=== PATIENT | female | born 1950 | race Hispanic/Latino ===

== ENCOUNTER 2016-12-31 04:18 | Inpatient (IN) | payer BC ==
[2016-12-31 04:23] VITALS: BMI 23.9
[2016-12-31] MEDS: Sodium Chloride 0.9% 1,000 ML IV STA ×2 (04:36→05:33)
--- NOTE | 2016-12-31 04:39 | ED PDOC ---
Arrival/HPI - General Chief Complaint: Abdominal Pain Time Seen by Provider: 12/31/16 04:21 Historian: Patient - History of Present Illness Narrative History of Present Illness (Text): 12/31/16 04:35 Lamar Del Real is a 66 year old female, with no significant past medical history , who presents to the emergency department complaining of left flank pain. Patient states tonight she woke up with sudden onset of left flank pain radiating to her left abdomen and hematuria. Patient notes yesterday she had nausea, vomiting, and headache. Patient denies any fever, chills, chest pain, shortness of breath, diarrhea, back pain, neck pain, headache, dizziness, or any other complaints. Time/Duration: Other (yesterday) Symptom Onset: Gradual Symptom Course: Unchanged Activities at Onset: Rest, Light Context: Home Past Medical History - Provider Review Nursing Documentation Reviewed: Yes - Infectious Disease Hx of Infectious Diseases: None - Psychiatric Hx Substance Use: No - Anesthesia Hx Anesthesia: No Family/Social History - Physician Review Nursing Documentation Reviewed: Yes Family/Social History: No Known Family HX Smoking Status: Former Smoker Hx Alcohol Use: Yes Frequency of alcohol use: Socially Hx Substance Use: No Allergies/Home Meds Allergies/Adverse Reactions: Allergies No Known Allergies Allergy (Verified 12/31/16 04:23) Home Medications: Home Meds Medication Instructions Recorded Confirmed No Known Home Med 12/31/16 12/31/16 Review of Systems - Physician Review All systems were reviewed & negative as marked: Yes - Review of Systems Constitutional: Normal. absent: Fevers Eyes: Normal ENT: Normal Respiratory: Normal. absent: SOB, Cough Cardiovascular: Normal. absent: Chest Pain Gastrointestinal: Nausea, Vomiting Genitourinary Female: Hematuria Musculoskeletal: Back Pain. absent: Neck Pain Skin: Normal. absent: Rash Neurological: Normal. absent: Headache, Dizziness Endocrine: Normal Hemo/Lymphatic: Normal Psychiatric: Normal Physical Exam Vital Signs Reviewed: Yes Vital Signs Temp Pulse Resp BP Pulse Ox 12/31/16 04:39 181/88 H 12/31/16 04:25 97.9 F 94 H 20 163/126 H 99 Temperature: Afebrile Blood Pressure: Normal Pulse: Regular Respiratory Rate: Normal Appearance: Positive for: Well-Appearing, Non-Toxic, Comfortable Pain Distress: None Mental Status: Positive for: Alert and Oriented X 3 - Systems Exam Head: Present: Atraumatic, Normocephalic Pupils: Present: PERRL Extroacular Muscles: Present: EOMI Conjunctiva: Present: Normal Mouth: Present: Moist Mucous Membranes Neck: Present: Normal Range of Motion Respiratory/Chest: Present: Clear to Auscultation, Good Air Exchange. No: Respiratory Distress, Accessory Muscle Use Cardiovascular: Present: Regular Rate and Rhythm, Normal S1, S2. No: Murmurs Abdomen: Present: Normal Bowel Sounds. No: Tenderness, Distention, Peritoneal Signs Back: Present: Normal Inspection Upper Extremity: Present: Normal Inspection. No: Cyanosis, Edema Lower Extremity: Present: Normal Inspection. No: Edema Neurological: Present: GCS=15, CN II-XII Intact, Speech Normal Skin: Present: Warm, Dry, Normal Color. No: Rashes Psychiatric: Present: Alert, Oriented x 3, Normal Insight, Normal Concentration Medical Decision Making ED Course and Treatment: 12/31/16 04:35 Impression: 66 Year old female Complaining of left flank pain and hematuria tonight with nausea and vomiting since yesterday Plan: -- CT Abdomen and Pelvis w/o contrast -- Labs, lipase -- UA -- IV fluids -- Zofran -- Toradol -- Reassess and disposition Progress Notes: 12/31/16 06:43 Reviewed radiology, CT Abdomen and Pelvis shows: 1. There is fullness of the right renal collecting system. No obstructing stone is identified. There is a questionable tiny stone in the extrarenal pelvis. 2. Hydronephrosis left kidney. There is some high attenuation material in the proximal left ureter possibly representing clot. No stones are seen within this kidney. Mild inflammation a small amount of fluid around the left kidney consistent with obstruction. 12/31/16 06:49 Paged pt's PMD. 12/31/16 06:[address] Mile Fu, who is aware and agrees with plan. Accepts pt in to his service. Pt will be admitted to [facility] for hydronephrosis/pyelonephritis, and hematuria. Requests Dr. Norris and Dr. Vallejo on consult. Paged Dr. Vallejo. - Lab Interpretations Lab Results: 12/31/16 04:33 12/31/16 04:33 Lab Results 12/31/16 04:33: WBC 14.1 H, RBC 7.27 H, Hgb 19.5 H*, Hct 57.1 H*, MCV 78.5 L, MCH 26.8, MCHC 34.2, RDW 20.6 H, Plt Count 751 H*, MPV 9.9, Sodium 139, Potassium 4.1, Chloride 98, Carbon Dioxide 25, Anion Gap 20, BUN 22 H, Creatinine 1.1, Est GFR ( Amer) > 60, Est GFR (Non-Af Amer) 50, Random Glucose 130 H, Calcium 9.9, Total Bilirubin 1.1, AST 38, ALT 45, Alkaline Phosphatase 116, Total Protein 8.3, Albumin 4.6, Globulin 3.7, Albumin/Globulin Ratio 1.2, Lipase 272 I have reviewed the lab results: Yes - RAD Interpretation Narrative RAD Interpretations (Text): CT Abdomen and Pelvis shows: Lower thorax: Atelectasis posterior lungs. Trace pericardial effusion. ABDOMEN: Liver: Unremarkable. Gallbladder and bile ducts: Unremarkable. No calcified stones. No ductal dilation. Pancreas: Unremarkable. No ductal dilation. Spleen: Unremarkable. No splenomegaly. Adrenals: Unremarkable. No mass. Kidneys and ureters: There is fullness of the right renal collecting system. No obstructing stone is identified. There is a questionable tiny stone in the extrarenal pelvis. Hydronephrosis left kidney. There is some high attenuation material in the proximal left ureter possibly representing clot. No stones are seen within this kidney. Mild inflammation a small amount of fluid around the left kidney consistent with obstruction. Stomach and bowel: Diverticulosis in the colon without evidence of diverticulitis. No obstruction. Appendix: Normal appendix. PELVIS: Bladder: Unremarkable. No stones. Reproductive: Unremarkable as visualized. ABDOMEN and PELVIS: Intraperitoneal space: Unremarkable. No free air. No significant fluid collection. Bones/joints: No acute fracture. No dislocation. Soft tissues: Small umbilical hernia containing fat. Vasculature: Unremarkable. No abdominal aortic aneurysm. Lymph nodes: Unremarkable. No enlarged lymph nodes. IMPRESSION: 1. There is fullness of the right renal collecting system. No obstructing stone is identified. There is a questionable tiny stone in the extrarenal pelvis. 2. Hydronephrosis left kidney. There is some high attenuation material in the proximal left ureter possibly representing clot. No stones are seen within this kidney. Mild inflammation a small amount of fluid around the left kidney consistent with obstruction. 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 - Medication Orders Current Medication Orders: Sodium Chloride (Sodium Chloride 0.9%) 1,000 mls @ 999 mls/hr IV .Q1H1M STA Stop: 12/31/16 08:00 Last Admin: 12/31/16 07:00 Dose: 999 MLS/HR eMAR Start Stop Document 12/31/16 07:00 GMD (Rec: 12/31/16 07:00 [id number] Intravenous Solution Start Date 12/31/16 Start Time 07:00 End Date 12/31/16 End time 08:00 Total Infusion Time 60 Sodium Chloride (Sodium Chloride 0.9%) 1,000 mls @ 100 mls/hr IV .Q10H STA Stop: 12/31/16 17:25 Discontinued Medications Hydromorphone HCl (Dilaudid) 1 mg IVP STAT STA Stop: 12/31/16 04:56 Last Admin: 12/31/16 05:01 Dose: 1 MG IVP Administration Document 12/31/16 05:01 GMD (Rec: 12/31/16 05:01 [id number] Charges for Administration # of IVP Administrations 1 Hydromorphone HCl (Dilaudid) 1 mg IVP STAT STA Stop: 12/31/16 07:27 Sodium Chloride (Sodium Chloride 0.9%) 1,000 mls @ 999 mls/hr IV .Q1H1M STA Stop: 12/31/16 05:32 Last Admin: 12/31/16 05:33 Dose: 999 MLS/HR eMAR Start Stop Document 12/31/16 05:33 MICHAEL (Rec: 12/31/16 05:34 [id number]) Intravenous Solution Start Date 12/31/16 Start Time 04:35 End Date 12/31/16 End time 05:34 Total Infusion Time 59 Ceftriaxone Sodium (Rocephin 1 Gram Ivpb) 100 mls @ 200 mls/hr IV ONCE STA PRN Reason: Protocol Stop: 12/31/16 07:18 Ketorolac Tromethamine (Toradol) 30 mg IVP ONCE ONE Stop: 12/31/16 04:33 Last Admin: 12/31/16 04:41 Dose: 30 MG IVP Administration Document 12/31/16 04:41 GMD (Rec: 12/31/16 04:41 GMD [id number]) Charges for Administration # of IVP Administrations 1 Ondansetron HCl (Zofran Inj) 4 mg IVP ONCE ONE Stop: 12/31/16 04:33 Last Admin: 12/31/16 04:41 Dose: 4 MG IVP Administration Document 12/31/16 04:41 GMD (Rec: 12/31/16 04:41 GMD [id number]) Charges for Administration # of IVP Administrations 1 - Scribe Statement The provider has reviewed the documentation as recorded by the Savanna Thakkar Provider Attestation: All medical record entries made by the Savanna were at my direction and personally dictated by me. I have reviewed the chart and agree that the record accurately reflects my personal performance of the history, physical exam, medical decision making, and the department course for this patient. I have also personally directed, reviewed, and agree with the discharge instructions and disposition. Disposition/Present on Arrival - Present on Arrival Any Indicators Present on Arrival: No History of DVT/PE: No History of Uncontrolled Diabetes: No Urinary Catheter: No History of Decub. Ulcer: No History Surgical Site Infection Following: None - Disposition Have Diagnosis and Disposition been Completed?: Yes Diagnosis: Pyelonephritis, Hematuria, Hydronephrosis, Polycythemia Disposition: HOSPITALIZED Disposition Time: 07:19 Patient Plan: Admission Patient Problems: Current Active Problems Problem Status Diagnosed Hematuria Acute Hydronephrosis Acute Polycythemia Acute Pyelonephritis Acute Condition: STABLE
[2016-12-31] MEDS ORDERED: HYDROmorphone 1 mg/ml ISec IVP STA ×2 (04:55→07:26)
[2016-12-31 05:02] LABS: MEAN CELL VOLUME 78.5 fL (80.0-105.0); MEAN CORPUSCULAR HEMOGLOBIN 26.8 pg (25.0-35.0); MEAN CORPUSCULAR HGB CONC 34.2 g/dl (31.0-37.0); RED CELL DISTRIBUTION WIDTH 20.6 % (11.5-14.5); WHITE BLOOD COUNT 14.1 10^3/ul (4.5-11.0)
[2016-12-31 05:05] LABS: HEMATOCRIT 57.1 % (36.0-48.0); MEAN PLATELET VOLUME 9.9 fl (7.0-11.0)
[2016-12-31 05:13] LABS: ALB/GLOB RATIO 1.2 (1.1-1.8); ALKALINE PHOSPHATASE 116 U/L (38-133); ALT/SGPT 45 U/L (7-56); AST/SGOT 38 U/L (15-39); BILIRUBIN,TOTAL 1.1 mg/dL (0.2-1.3); BLOOD UREA NITROGEN 22 mg/dL (7-21); CALCIUM 9.9 mg/dL (8.4-10.5); CARBON DIOXIDE 25 mmol/L (21-33); CHLORIDE 98 mmol/L (98-107); GFR AFRICAN-AMERICAN > 60; GLUCOSE,RANDOM 130 mg/dL (70-110); LIPASE 272 U/L (23-300); POTASSIUM 4.1 mmol/L (3.6-5.0); SODIUM 139 mmol/L (132-148); TOTAL PROTEIN 8.3 g/dL (5.8-8.3)
[2016-12-31] MEDS ORDERED: cefTRIAXone 1 gm 100 ML IV STA (06:49)
[2016-12-31] MEDS ORDERED: Sodium Chloride 0.9% 1,000 ML IV STA ×2 (07:00→07:26)
[2016-12-31 07:34] LABS: PH,URINE 6.5 (4.7-8.0); URINE BILIRUBIN NEGATIVE (NEGATIVE); URINE BLOOD LARGE (NEGATIVE); URINE GLUCOSE (UA) NEGATIVE (NEGATIVE); URINE KETONE 40 mg/dL (NEGATIVE); URINE LEUKOCYTE ESTERASE TRACE Leu/uL (NEGATIVE); URINE PROTEIN 100 mg/dL (<30 mg/dL)
[2016-12-31 07:36] LABS: URINE APPEARANCE CLOUDY (CLEAR); URINE COLOR YELLOW (YELLOW)
[2016-12-31 07:47] LABS: URINE BACTERIA MOD (NEG); URINE EPITHELIAL CELLS 0 - 2 /hpf (0-5); URINE RBC TNTC /hpf (0-2); URINE WBC 0 - 2 /hpf (0-6)
--- NOTE | 2016-12-31 09:34 | CT ---
PROCEDURE: CT Abdomen and Pelvis without intravenous contrast HISTORY: left flank pain COMPARISON: None. TECHNIQUE: Noncontrast. Contrast Dose: Radiation dose: Total exam DLP = 397 mGy-cm. This CT exam was performed using one or more of the following dose reduction techniques: Automated exposure control, adjustment of the mA and/or kV according to patient size, and/or use of iterative reconstruction technique. FINDINGS: LOWER THORAX: Unremarkable. LIVER: Unremarkable. No gross lesion or ductal dilatation. GALLBLADDER AND BILE DUCTS: Unremarkable. PANCREAS: Unremarkable. No gross lesion or ductal dilatation. SPLEEN: Unremarkable. ADRENALS: Unremarkable. No mass. KIDNEYS AND URETERS: There is some perinephric stranding around the left kidney as well as mild hydronephrosis. There is dense material seen in the proximal ureter without evidence of a discrete stone. A small stone could be obscured. This probably represents acute blood. Findings are best seen on image 43 and 44 in the coronal plane. The right renal collecting system is mildly prominent but there is no perinephric stranding and no evidence of a stone. VASCULATURE: Unremarkable. No aortic aneurysm. BOWEL: Unremarkable. No obstruction. No gross mural thickening. APPENDIX: Unremarkable. Normal appendix. PERITONEUM: Unremarkable. No free fluid. No free air. LYMPH NODES: Unremarkable. No enlarged lymph nodes. BLADDER: Unremarkable. REPRODUCTIVE: Unremarkable. BONES: No acute fracture. OTHER FINDINGS: The report concurs with the preliminary [facility] report IMPRESSION: Left-sided hydronephrosis and perinephric stranding. There is some dense material in the proximal left ureter which probably represents acute blood. This is probably obscuring an underlying stone.
[2016-12-31] MEDS ORDERED: HYDROmorphone 1 mg/ml ISec IVP PRN (11:49)
[2016-12-31] MEDS ORDERED: Pneumococcal 23-Valent Vaccine IM ONE (13:23)
--- NOTE | 2016-12-31 14:09 | CON ---
DATE: 12/31/2016 CHIEF COMPLAINT: Abdominal pain. HISTORY OF PRESENT ILLNESS: This is a 66[facility] after 2 days of sudden onset of left lower back and left lower quadrant abdominal pain. The patient had nausea with some vomiting and she had a headache. She had no fever, no chills , no chest pain, no shortness of breath. She denies any dysuria, urinary frequency or urgency, but d oes report an episode of gross hematuria. The patient's pain increased, and she presented to the [facility] where she was evaluated and admitted. She had a CT scan showing some mild left hydronephrosis with some high density material in the ureter, although no discrete stone was seen. A consultatio n was requested regarding the above. PAST MEDICAL HISTORY: Denies any diabetes or hypertension. Denies any coronary artery disease. MEDICATIONS: Currently on Dilaudid, Zofran, and IV fluids. ALLERGIES: No known drug allergies. FAMILY HISTORY: Noncontributory. SOCIAL HISTORY: No smoking or ETOH use. REVIEW OF SYSTEMS: A 12-point review of systems was obtained. Positives as per the HPI. All other systems were negative. PHYSICAL EXAMINATION: GENERAL: The patient is awake and alert, answering questions. She is in no acute distress. She is afebrile. VITAL SIGNS: Temp of 97.9, pulse of 96, blood pressure 149/90 and respirations of 16. NECK: Supple. There is no adenopathy or mass. CHEST: Reveals normal inspiratory effort. CARDIAC: Showed positive S1, S2. There is no peripheral edema noted. ABDOMEN: Soft. There is some mild tenderness in the left lower quadrant and some mild tenderness to percussion over the left lower back below the kidney region. There is no rebound or guarding. Ther e is no obvious mass. EXTREMITIES: There is no cyanosis or edema noted. LABORATORY DATA: WBC count 14.1, hemoglobin of 19.5 and hematocrit of 57.1 with a platelet count of 751, BUN of 22, a creatinine of 1.1 with a GFR of 50. Urinalysis showed too numerous to count rbc's, 0-2 wbc's, negative glucose and trace protein. RADIOLOGIC EXAMINATION: The patient had a CT scan of the abdomen and pelvis done early this morning. CT scan shows some perinephric stranding around the left kidney as well as mild hydronephrosis. Th ere is a dense material seen in the proximal ureter without evidence of a discrete stone, small stone could be obscured this finding was felt to represent likely an acute bleed. The right kidney was mi ldly prominent, but there was no perinephric stranding or hydronephrosis. IMPRESSION AND PLAN: This is a 66-year-old female with likely renal colic. It is possibly due to a stone or possibly due to a bleed. From a urologic standpoint, I will start patient on Flomax 0.4 mg daily. Would continue patient on IV hydration, aggressive p.o. hydration and would start patient on IV antibiotics. It is unclear why patient has an elevated hemoglobin, hematocrit and platelet count, possibly patient will need a hematology consultation. If patient's symptoms persist, I would plan o n repeating a CT scan without and with IV contrast if patient's GFR improves with hydration to see if there is indeed a stone, it would likely be a small stone and would likely pass spontaneously with m edical therapy. Thank you for allowing us to participate in the care of this patient. We will follow her with you. There is no acute indication for any invasive urologic procedure at this time. Dwayne Hamilton MD cc: [phone] TT: 12/31/2016 14:08:41 Confirmation # [id number] Dictation # [id number] an
[2016-12-31 16:11] VITALS: RESP 20
[2017-01-01 09:02] LABS: ADD MANUAL DIFF? NO
[2017-01-01] MEDS: Dextrose 5%/0.45% NS 1,000 ML IV SCH ×2 (09:24→17:29)
[2017-01-01] MEDS: cefTRIAXone 1 gm 1 GM/100 ML BAG IV SCH (09:24)
[2017-01-01 09:30] LABS: BASO # 0.07 K/mm3 (0.0-2.0); BASO % 0.5 % (0.0-3.0); EOS # 0.1 (0.0-0.7); EOS % 0.9 % (1.5-5.0); GRAN % 85.3 % (50.0-68.0); HEMATOCRIT 51.8 % (36.0-48.0); LYMPH # 0.8 (1.2-3.4); LYMPH % 5.8 % (22.0-35.0); MEAN CELL VOLUME 81.1 fL (80.0-105.0); MEAN CORPUSCULAR HEMOGLOBIN 27.7 pg (25.0-35.0); MEAN CORPUSCULAR HGB CONC 34.2 g/dl (31.0-37.0); MEAN PLATELET VOLUME 10.4 fl (7.0-11.0); MONO % 7.5 % (1.0-6.0); PLATELET COUNT 501 10^3/uL (120.0-450.0); RED CELL DISTRIBUTION WIDTH 17.5 % (11.5-14.5); WHITE BLOOD COUNT 13.5 10^3/ul (4.5-11.0)
[2017-01-01 09:39] LABS: CALCIUM 8.7 mg/dL (8.4-10.5)
--- NOTE | 2017-01-01 10:43 | PN ---
DATE: 01/01/2017 The patient is still having intermittent left flank pain. CAT scan was reviewed. Her white count is still 13,500. The CAT scan shows left hydro. Her father has had kidney stones. It is possible thi s could be a very small stone; however, the other possibility, given her history of sudden onset and bleeding with worm-like clots, we want to rule out some type of urothelial tumor. Her creatinine rig ht now is 1.5. I would not give her IV contrast. The BUN actually is a little bit lower than it was when it was 1.1. My recommendation is to continue with hydration. If she continues to have left fl ank pain, I would recommend doing a cystoscopy with retrograde, stent placement and possible flexible ureteroscopy. If she improves without any pain and her creatinine comes down to normal, I would do a CT urogram on her and then electively do a retrograde with flexible ureteroscopy. Will discuss brittanie olmos you. Magdiel Vallejo MD cc: [phone] TT: 01/01/2017 10:42:19 Confirmation # [id number] Dictation # [id number] jan
--- NOTE | 2017-01-01 10:57 | HP ---
HISTORY OF PRESENT ILLNESS: The patient is a 66-year-old female who presents to the Emergency Room complaining of left flank pain. Three days ago the patient had a sudden onset of headache followed by nausea and dry heaving. The following day, the dry heaving continue. The patient states she had a black bowel movement, "vandana than I ever saw before." This morning she developed left-sided flank pain. It was radiating from the left flank across the lower abdomen towards the pubes. She, therefore, presented to the Emergency, is evaluated and admitted. PAST MEDICAL HISTORY: She has essentially no past medical history. MEDICATIONS: Was taking no medications at the time of admission. ALLERGIES: She has no known medical allergies. SOCIAL HISTORY: She is a former smoker, has not smoked in many years. Drinks alcohol only socially. She is . REVIEW OF SYSTEMS: Otherwise, unremarkable. PHYSICAL EXAMINATION: GENERAL: The patient looks uncomfortable. She is awake, alert, and oriented. VITAL SIGNS: Her blood pressure is 163/126 which after a while came down to 181 /88. Heart rate is 94 and she is afebrile. HEENT: Unremarkable. NECK: Supple. No lymphadenopathy, no goiter and no bruits. LUNGS: Clear to auscultation and percussion. HEART: Regular. No murmurs, gallops or rubs are appreciated. ABDOMEN: Soft, nontender. Bowel sounds are normal. Exam is positive for left flank and left lower quadrant tenderness on deep palpation. EXTREMITIES: Free of cyanosis, clubbing or edema. NEUROLOGIC: She is awake, alert, and oriented with no focal neurological signs. LABORATORY STUDIES: Her urinalysis is positive for blood, leukocyte esterase and protein. CAT scan of the abdomen showed left perinephric streaking with a slight hydronephrosis. There were some changes in the left proximal ureter which could be due to a calculus; however, no definite calculus is seen on CAT scan. Her white blood cell count is 14.1, hemoglobin and hematocrit are 19.5 and 57.1 respectively, platelet count is markedly elevated at 751. Last bloodwork done in our office was May 2016 and the CBC was perfectly normal at that time. Sodium is 139, potassium 4.1, BUN is 22, creatinine is 1.1. Nonfasting glucose is 130. Bilirubin is 1.1. Liver enzymes, AST and ALT , are normal at 38 and 45 respectively. Alkaline phosphatase is 116. So the patient is admitted with left flank plain, hematuria, rule out ureteral calculus. A consultation with Dr. Vallejo, the urologist, is requested. Because of the abnormal CBC, we are also requesting consultation from the inspector receiving, Dr. Norris. We will also be testing stools for heme because of her history of black bowel movements. The patient is admitted to the med-surg floor and will be followed closely. Jacinto Fu MD cc: [phone] TT: 01/01/2017 10:56:14 amara CABA
[2017-01-01 11:40] LABS: PH,URINE 5.5 (4.7-8.0); URINE BILIRUBIN NEGATIVE (NEGATIVE); URINE BLOOD LARGE (NEGATIVE); URINE GLUCOSE (UA) NEGATIVE (NEGATIVE); URINE KETONE 15 mg/dL (NEGATIVE); URINE LEUKOCYTE ESTERASE TRACE Leu/uL (NEGATIVE); URINE PROTEIN NEGATIVE mg/dL (<30 mg/dL); URINE UROBILINOGEN 0.2 E.U./dL (<1 E.U./dL)
[2017-01-01 11:42] LABS: URINE APPEARANCE SL CLOUDY (CLEAR); URINE COLOR YELLOW (YELLOW)
[2017-01-01 12:18] LABS: URINE BACTERIA FEW (NEG)
--- NOTE | 2017-01-01 13:51 | CON ---
DATE: 01/01/2017 This is a 66-year-old woman who comes in with urosepsis and elevated white count, red count and plate let count. Cigarettes negative. Alcohol negative. ALLERGIES: None. The patient is not working at this point. The patient has last been in the hospital for childbirth. She said she was well until several days ago when she started developing weakness, chills and nausea and inability to eat, and she was finally put in to the hospital where she was found to have a urina ry tract infection. Her white count was elevated. Her hemoglobin, however, was 19. Her platelet co unt was around 650,000. After antibiotics and IV hydration for a day, white count now is 13,000 with hemoglobin 17 and platelet count still in the 500,000 range. PHYSICAL EXAMINATION: SKIN: No petechiae, no bruises. HEENT: Anicteric. NODES: None palpable in the axillary, cervical or supraclavicular regions. LUNGS: Clear at present. No vertebral tenderness. HEART: S1, S2. ABDOMEN: Shows no liver, no spleen. Some mild tenderness at mid epigastric and mild tenderness in t he flanks. EXTREMITIES: No edema. CENTRAL NERVOUS SYSTEM: No focal finding. This is most likely reactive, secondary to the infection. However, as I explained to the patient and her , we are going to rule out chromosomal changes here with a JAK2 mutation and a BCR-ABL mu tation to rule out chronic leukemia and chronic essential thrombocytosis. I told them we will not ge t the results back for about a week and she will be followed up with her primary care doctor. Suraj Norris MD cc: [phone] TT: 01/01/2017 13:51:18 Confirmation # [id number] Dictation # [id number] en
[2017-01-01 14:30] LABS: HEMATOCRIT 48.8 % (36.0-48.0); MEAN CELL VOLUME 80.7 fL (80.0-105.0); MEAN CORPUSCULAR HEMOGLOBIN 27.6 pg (25.0-35.0); MEAN CORPUSCULAR HGB CONC 34.2 g/dl (31.0-37.0); RED CELL DISTRIBUTION WIDTH 17.3 % (11.5-14.5); WHITE BLOOD COUNT 10.8 10^3/ul (4.5-11.0)
[2017-01-01 16:34] VITALS: TEMP 97.9; O2SAT 96
--- NOTE | 2017-01-02 02:29 | PN ---
DATE: 01/01/2017 HISTORY OF PRESENT ILLNESS: The patient was seen this Saturday in room 564, bed 2 with her hus band at the bedside. She is now awake, alert, clear, in bed, comfortable, in no acute distress. She said she was feeling rather well through the night when this morning, sudden onset of severe left fl ank colicky pain returned. The urine had cleared, but again bloody urine returned as well. She resp onded nicely to IV analgesics and is now much more comfortable. She was seen by Dr. Vallejo, the urolog ist, this morning who agreed with taking a conservative approach and watching her symptoms with the t reatment as outlined above. She continues on IV antibiotics, IV fluids. PHYSICAL EXAMINATION: HEAD AND NECK: Unremarkable. ABDOMEN: Soft and nontender. There is some CVA tenderness on the left flank. IMPRESSION: 1. Suspected renal colic. 2. Possible pyelonephritis. PLAN: Continuing IV fluids, antibiotics, monitor closely. Edinson Fu MD cc: [phone] TT: 01/02/2017 02:28:42 Confirmation # [id number] Dictation # [id number] amara
[2017-01-02] MEDS: Dextrose 5%/0.45% NS 1,000 ML IV SCH (05:19)
[2017-01-02 07:25] VITALS: BP 165/100; PULSE 77
[2017-01-02] MEDS: cefTRIAXone 1 gm 1 GM/100 ML BAG IV SCH (09:42)
[2017-01-03 23:44] LABS: BCR-ABL PRIOR RESULT NOT GIVEN; BCR-ABL SOURCE NOT GIVEN; P190 BCR-ABL1 NOT DETECTED; P210 BCR-ABL1 NOT DETECTED
[2017-01-04 14:09] LABS: JAK2 V617F MUTATION LEVEL 49.3 % mutation
[2017-01-06 16:56] LABS: JAK2 V617F DETECTED
--- NOTE | 2017-04-12 16:32 | DS ---
HISTORY OF PRESENT ILLNESS: The patient is a 66-year-old female who presented to the emergency room complaining of left flank pain. She admitted the onset was preceded by headache and nausea and vomiting. She did have a black bowel movement several days prior to presentation. The pain was radiating from the left flank across the lower abdomen towards the pubic area. Her white blood cell count was mildly elevated at 14.1. BUN and creatinine were 22 and 1.1 respectively. She was found to have hematuria. So, the patient was admitted with diagnosis of ureteral calculus. Consultation was requested from Dr. Vallejo. Also because of the abnormal CBC, we requested Dr. Norris, the check pilot to evaluate the patient. She was treated with intravenous antibiotics and IV fluids. She was feeling well some on this regimen. Her urine had cleared somewhat. The patient is feeling much more comfortable. Dr. Vallejo decided to take conservative approach and just watching her condition. As the patient improves, she was ready for discharge to home. She was to follow up with Dr. Vallejo post discharge as well as with Dr. Norris who was suspicious of chronic leukemia and chronic thrombocytosis. She will be followed up closely as an outpatient. FINAL DIAGNOSES: 1. Hematuria. 2. Suspect pyelonephritis. 3. Thrombocytosis. 4. Suspect leukemia. Jacinto Fu MD
== END 2017-01-02 12:25 | disposition home or self-care (01) | DRG 690 ==
LOC: ED 04:18 → ERH 07:32 → 5RNO 08:54
PROVIDERS: ADMIT Internal Medicine; ATTEND Internal Medicine
DX: N10 Acute pyelonephritis (principal); N23 Unspecified renal colic; R31.0 Gross hematuria; N13.30 Unspecified hydronephrosis; Z87.891 Personal history of nicotine dependence

== ENCOUNTER 2017-09-12 09:19 | Inpatient (IN) | payer BC ==
[2017-09-12] MEDS ORDERED: Sodium Chloride 0.9% 1,000 ML IV STA (09:43)
--- NOTE | 2017-09-12 09:45 | ED PDOC ---
Arrival/HPI - General Chief Complaint: Dizziness/Lightheaded Time Seen by Provider: 09/12/17 09:29 Historian: Patient, Spouse - History of Present Illness Narrative History of Present Illness (Text): 09/12/17 09:45 This 66 yo female with pmh htn, presents to this ED c/o feeling dizzy, and sensation of syncope x 2 days. Patient also noted that she has not able to move her right UE x 3 weeks. Patient was seen by her PMD and Dr. Barkley for her arm problem. Patient stated having out-patient CT scan which were normal as per patient. Patient had an appointment to see Dr. Barkley Ortho., today. Patient stated she fell down this morning, but she denies head injury. Patient feels mild nausea. Patient is able to move shoulder. Patient stated she has normal feeling on her right arm. Denies other somatic complains. Time/Duration: Other (see hpi) Context: Home Past Medical History - Provider Review Nursing Documentation Reviewed: Yes - Infectious Disease Hx of Infectious Diseases: None - Cardiac Hx Cardiac Disorders: Yes Hx Hypertension: Yes - Pulmonary Hx Asthma: No - Neurological HX Cerebrovascular Accident: No - HEENT Hx HEENT Disorder: Yes (sinusitis, seasonal allergies) - Endocrine/Metabolic Hx Endocrine Disorders: No - Hematological/Oncological Hx Metastasis: No - Integumentary Hx Cellulitis: No - Musculoskeletal/Rheumatological Hx Falls: No Hx Spinal Stenosis: No - Gastrointestinal Hx Liver Failure: No - Genitourinary/Gynecological Hx Ovarian Cancer: No - Psychiatric Hx Substance Use: No - Anesthesia Hx Anesthesia: No Family/Social History - Physician Review Nursing Documentation Reviewed: Yes Family/Social History: Other (noncontributory) Smoking Status: Former Smoker Hx Alcohol Use: Yes (social) Hx Substance Use: No Allergies/Home Meds Allergies/Adverse Reactions: Allergies No Known Allergies Allergy (Verified 09/12/17 09:22) Home Medications: Home Meds Medication Instructions Recorded Confirmed Nebivolol [Bystolic] 5 mg PO DAILY 09/12/17 09/12/17 Review of Systems - Review of Systems Constitutional: Fatigue. absent: Weight Change, Fevers Eyes: Normal. absent: Vision Changes, Photophobia, Eye Pain ENT: Normal Respiratory: Normal. absent: SOB, Cough Cardiovascular: Normal. absent: Chest Pain, Palpitations Gastrointestinal: Nausea. absent: Abdominal Pain, Diarrhea, Vomiting Genitourinary Female: Normal. absent: Dysuria, Frequency Musculoskeletal: Normal Skin: Other (see hpi) Neurological: Dizziness, Focal Weakness, Other (near syncope). absent: Headache , Gait Changes, Speech Changes, Facial Droop, Disequilibrium, Seizure Endocrine: Normal Hemo/Lymphatic: Normal Psychiatric: Normal Physical Exam Vital Signs Temp Pulse Resp BP Pulse Ox 09/12/17 11:00 61 16 177/99 H 97 09/12/17 09:23 97.8 F 65 18 166/94 H 98 Temperature: Afebrile Blood Pressure: Normal Pulse: Regular Respiratory Rate: Normal Appearance: Positive for: Well-Appearing, Non-Toxic, Comfortable Pain Distress: None Mental Status: Positive for: Alert and Oriented X 3 - Systems Exam Head: Present: Atraumatic, Normocephalic Pupils: Present: PERRL Extroacular Muscles: Present: EOMI Conjunctiva: Present: Normal Mouth: Present: Moist Mucous Membranes Pharnyx: Present: Normal. No: ERYTHEMA, EXUDATE, TONSILS ENLARGED Nose (External): Present: Atraumatic Nose (Internal): Present: Normal Inspection Neck: Present: Normal Range of Motion. No: Meningeal Signs Respiratory/Chest: Present: Clear to Auscultation, Good Air Exchange. No: Respiratory Distress, Accessory Muscle Use Cardiovascular: Present: Regular Rate and Rhythm, Normal S1, S2. No: Murmurs Abdomen: Present: Normal Bowel Sounds. No: Tenderness, Distention, Peritoneal Signs Back: Present: Normal Inspection Upper Extremity: Present: Normal Inspection, NORMAL PULSES, Neurovascularly Intact, Capillary Refill < 2s. No: Cyanosis, Edema, Normal ROM (patient ca not move right UE, minimum movement of right shoulder), Tenderness, Swelling, Erythema Lower Extremity: Present: Normal Inspection, NORMAL PULSES, Normal ROM, Neurovascularly Intact, Capillary Refill < 2 s. No: Edema Neurological: Present: GCS=15, CN II-XII Intact, Speech Normal, Normal Sensory Function, Memory Normal Skin: Present: Warm, Dry, Normal Color. No: Rashes Psychiatric: Present: Alert, Oriented x 3, Normal Insight, Normal Concentration Medical Decision Making ED Course and Treatment: 09/12/17 11:08 Dr. Segundo Neurosurgery was paged. 09/12/17 11:[address] Baljit Hamilton and reviewed patient's history, ct scan, labs, VS , and physical exam finding. He stated he saw ct images himself, and he had reviewed official CT scan report. He stated patient would need MRI w/wo, and admission. He stated there is nothing to do from surgical point of view at this time. 09/12/17 11:[address] Fu, MEL regarding patient complain, medical history, VS , ct scan report, neurosurgery consult , and physical exam. He agrees with plan for admission. To have Dr. Reynolds for consult. Patient agrees with plan of admission. 09/12/17 11:[address] Hillman regrading patient's HTN. He recommended to continue monitor for now. Re-evaluation Time: 11:38 Reassessment Condition: Re-examined, Improving,but remains with symptoms - Lab Interpretations Lab Results: 09/12/17 09:52 09/12/17 10:00 Lab Results 09/12/17 10:10: Urine Color Yellow, Urine Appearance Sl cloudy, Urine pH 6.5, Ur Specific [place] 1.010, Urine Protein Trace H, Urine Glucose (UA) Negative, Urine Ketones Negative, Urine Blood Negative, Urine Nitrate Negative, Urine Bilirubin Negative, Urine Urobilinogen 0.2, Ur Leukocyte Esterase Negative, Urine RBC Negative, Urine WBC Negative 09/12/17 10:00: Sodium 141, Potassium 4.6, Chloride 107, Carbon Dioxide 27, Anion Gap 12, BUN 15, Creatinine 0.9, Est GFR ( Amer) > 60, Est GFR (Non- Af Amer) > 60, Random Glucose 89, Calcium 9.3, Total Bilirubin 1.1, AST 35, ALT 38, Alkaline Phosphatase 93, Lactate Dehydrogenase 774 H, Total Creatine Kinase 38, Troponin I 0.03, Total Protein 6.6, Albumin 3.6, Globulin 3.0, Albumin/ Globulin Ratio 1.2 09/12/17 09:52: PT 12.5, INR 1.09 H, APTT 41.2 H 09/12/17 09:52: WBC 10.0, RBC 7.48 H, Hgb 21.4 H*, Hct 62.4 H*, MCV 83.4, MCH 28.6, MCHC 34.3, RDW 20.2 H, Plt Count 499 H, MPV 10.3, Gran % 81.9 H, Lymph % ( Auto) 9.2 L, Cannon % (Auto) 6.6 H, Eos % (Auto) 1.7, Baso % (Auto) 0.6, Gran # 8.14 H, Lymph # 0.9 L, Cannon # 0.7 H, Eos # 0.2, Baso # 0.06 I have reviewed the lab results: Yes Interpretation: No sign. chg./baseline - RAD Interpretation Narrative RAD Interpretations (Text): 09/12/17 11:07 PROCEDURE: CT HEAD WITHOUT CONTRAST. HISTORY: dizziness COMPARISON: None available. TECHNIQUE: Axial computed tomography images were obtained through the head/brain without intravenous contrast. Radiation dose: Total exam DLP = 864.48 mGy-cm. This CT exam was performed using one or more of the following dose reduction techniques: Automated exposure control, adjustment of the mA and/or kV according to patient size, and/or use of iterative reconstruction technique. FINDINGS: HEMORRHAGE: Hyperdensity is appreciate the left frontal vertex posteriorly, measuring 0.8 x 1.9 x 1.1 cm (transverse by superoinferior by transverse dimensions) suggests of intraparenchymal hemorrhage with limited local edema but no significant mass effect. Differential diagnosis would be hemorrhagic metastasis. There is lucency separate from this lesion in the left occipital lobe of uncertain timeframe and origin. BRAIN: A hyperdense vessel is seen at the right parietal lobe appearing to drain across the posterior body of the right lateral ventricle and into the internal cerebral veins possibly representing a thrombosed vein, including possible thrombosed developmental venous anomaly. A chronic lacune is seen at the left caudate head. The posterior fossa contents appear unremarkable diffusely, including the brainstem. No suspicious extra-axial fluid collection identified. No significant mass effect. VENTRICLES: Unremarkable. No hydrocephalus. CALVARIUM: Unremarkable. PARANASAL SINUSES: Limited sinusitis seen in multifocal sinuses including bilateral ethmoid and right sphenoid sinuses. MASTOID AIR CELLS: Unremarkable as visualized. No inflammatory changes. OTHER FINDINGS: None. IMPRESSION: A small intraparenchymal hemorrhage is seen at the posterior left frontal lobe near the vertex 1.9 cm greatest dimension, with local edema but no significant mass effect appreciated. Separate areas of edema are appreciated at the left occipital knight and white matter suspicious for acute or subacute infarction. Venous sinus thrombosis is a possibility causing this unusual array findings locally. Hemorrhagic metastasis is a possibility. Apparently the patient did not experienced trauma but only dizziness on presentation today though she does have a history of right upper extremity weakness for several weeks. Hyperdensity within the venous sinuses is not clearly identified in the left cerebral hemisphere in particular but may be present and AD draining vein at the right parietal lobe without a possible developmental venous anomaly. Apparently, there are number prior CT scans performed at outside institution. Retrieval in comparison to the current study is recommended possible. Follow-up MRI with and without contrast is recommended. CT with contrast is an alternative to MRI if MRI is contraindicated. Findings discussed with DEVAN Casas 09/12/2017 10:55 a.m. with written down and read back verification. 09/12/17 11:41 Chest X-rays: HISTORY: dizziness COMPARISON: No prior. FINDINGS: LUNGS: No active pulmonary disease. PLEURA: No significant pleural effusion identified, no pneumothorax apparent. CARDIOVASCULAR: Normal. OSSEOUS STRUCTURES: No significant abnormalities. VISUALIZED UPPER ABDOMEN: Normal. OTHER FINDINGS: None. IMPRESSION: No active disease. Radiology Orders: 09/12/17 09:42 HEAD W/O CONTRAST [CT] Stat 09/12/17 09:44 CHEST PORTABLE [RAD] Stat - EKG Interpretation Interpreted by ED Physician: Yes (NSR @ [address] changes) Type: 12 lead EKG Comparison: No previous EKG avail. - Medication Orders Current Medication Orders: Discontinued Medications Sodium Chloride (Sodium Chloride 0.9%) 1,000 mls @ 999 mls/hr IV .Q1H1M STA Stop: 09/12/17 10:43 Last Admin: 09/12/17 10:02 Dose: 999 mls/hr eMAR Start Stop Document 09/12/17 10:02 MS (Rec: 09/12/17 10:02 MS [id number]) Intravenous Solution Start Date 09/12/17 Start Time 10:02 End Date 09/12/17 End time 11:02 Total Infusion Time 60 Meclizine HCl (Antivert) 25 mg PO STAT STA Stop: 09/12/17 09:44 Last Admin: 09/12/17 10:00 Dose: 25 mg Metoclopramide HCl (Reglan) 10 mg IVP STAT STA Stop: 09/12/17 10:28 Last Admin: 09/12/17 10:55 Dose: 10 mg IVP Administration Document 09/12/17 10:55 MS (Rec: 09/12/17 11:00 MS [id number]) Charges for Administration # of IVP Administrations 1 Disposition/Present on Arrival - Present on Arrival Any Indicators Present on Arrival: No History of DVT/PE: No History of Uncontrolled Diabetes: No Urinary Catheter: No History of Decub. Ulcer: No History Surgical Site Infection Following: None - Disposition Have Diagnosis and Disposition been Completed?: Yes Diagnosis: Hemorrhagic stroke, Polycythemia Disposition: HOSPITALIZED Disposition Time: 11:39 Patient Plan: Admission Patient Problems: Current Active Problems Problem Status Onset Polycythemia Acute Hemorrhagic stroke Acute Condition: STABLE
[2017-09-12 10:04] LABS: BASO # 0.06 K/mm3 (0.0-2.0); BASO % 0.6 % (0.0-3.0); EOS # 0.2 (0.0-0.7); EOS % 1.7 % (1.5-5.0); GRAN # 8.14 (1.4-6.5); GRAN % 81.9 % (50.0-68.0); LYMPH # 0.9 (1.2-3.4); LYMPH % 9.2 % (22.0-35.0); MEAN CELL VOLUME 83.4 fl (80.0-105.0); MEAN CORPUSCULAR HEMOGLOBIN 28.6 pg (25.0-35.0); MEAN CORPUSCULAR HGB CONC 34.3 g/dl (31.0-37.0); MEAN PLATELET VOLUME 10.3 fl (7.0-11.0); MONO # 0.7 (0.1-0.6); MONO % 6.6 % (1.0-6.0); RBC 7.48 10^6/uL (3.5-6.1); RED CELL DISTRIBUTION WIDTH 20.2 % (11.5-14.5)
[2017-09-12 10:16] LABS: INR 1.09 (0.93-1.08); PARTIAL THROMBOPLASTIN TIME 41.2 Seconds (25.1-36.5); PROTHROMBIN TIME 12.5 SECONDS (9.4-12.5)
[2017-09-12 10:20] LABS: HEMOGLOBIN 21.4 g/dL (12.0-16.0)
--- NOTE | 2017-09-12 10:30 | RAD ---
HISTORY: dizziness COMPARISON: No prior. FINDINGS: LUNGS: No active pulmonary disease. PLEURA: No significant pleural effusion identified, no pneumothorax apparent. CARDIOVASCULAR: Normal. OSSEOUS STRUCTURES: No significant abnormalities. VISUALIZED UPPER ABDOMEN: Normal. OTHER FINDINGS: None. IMPRESSION: No active disease.
[2017-09-12 10:35] LABS: AST/SGOT 35 U/L (14-36)
[2017-09-12 10:43] LABS: TROPONIN I 0.03 ng/mL
[2017-09-12 10:53] LABS: ALB/GLOB RATIO 1.2 (1.1-1.8); ALBUMIN 3.6 g/dL (3.0-4.8)
[2017-09-12 10:58] LABS: PH,URINE 6.5 (4.7-8.0); URINE BILIRUBIN NEGATIVE (NEGATIVE); URINE BLOOD NEGATIVE (NEGATIVE); URINE GLUCOSE (UA) NEGATIVE (NEGATIVE); URINE LEUKOCYTE ESTERASE NEGATIVE Leu/uL (NEGATIVE); URINE NITRATE NEGATIVE (NEGATIVE); URINE PROTEIN TRACE mg/dL (<30 mg/dL); URINE UROBILINOGEN 0.2 E.U./dL (<1 E.U./dL)
--- NOTE | 2017-09-12 11:05 | CT ---
PROCEDURE: CT HEAD WITHOUT CONTRAST. HISTORY: dizziness COMPARISON: None available. TECHNIQUE: Axial computed tomography images were obtained through the head/brain without intravenous contrast. Radiation dose: Total exam DLP = 864.48 mGy-cm. This CT exam was performed using one or more of the following dose reduction techniques: Automated exposure control, adjustment of the mA and/or kV according to patient size, and/or use of iterative reconstruction technique. FINDINGS: HEMORRHAGE: Hyperdensity is appreciate the left frontal vertex posteriorly, measuring 0.8 x 1.9 x 1.1 cm (transverse by superoinferior by transverse dimensions) suggests of intraparenchymal hemorrhage with limited local edema but no significant mass effect. Differential diagnosis would be hemorrhagic metastasis. There is lucency separate from this lesion in the left occipital lobe of uncertain timeframe and origin. BRAIN: A hyperdense vessel is seen at the right parietal lobe appearing to drain across the posterior body of the right lateral ventricle and into the internal cerebral veins possibly representing a thrombosed vein, including possible thrombosed developmental venous anomaly. A chronic lacune is seen at the left caudate head. The posterior fossa contents appear unremarkable diffusely, including the brainstem. No suspicious extra-axial fluid collection identified. No significant mass effect. VENTRICLES: Unremarkable. No hydrocephalus. CALVARIUM: Unremarkable. PARANASAL SINUSES: Limited sinusitis seen in multifocal sinuses including bilateral ethmoid and right sphenoid sinuses. MASTOID AIR CELLS: Unremarkable as visualized. No inflammatory changes. OTHER FINDINGS: None. IMPRESSION: A small intraparenchymal hemorrhage is seen at the posterior left frontal lobe near the vertex 1.9 cm greatest dimension, with local edema but no significant mass effect appreciated. Separate areas of edema are appreciated at the left occipital knight and white matter suspicious for acute or subacute infarction. Venous sinus thrombosis is a possibility causing this unusual array findings locally. Hemorrhagic metastasis is a possibility. Apparently the patient did not experienced trauma but only dizziness on presentation today though she does have a history of right upper extremity weakness for several weeks. Hyperdensity within the venous sinuses is not clearly identified in the left cerebral hemisphere in particular but may be present and AD draining vein at the right parietal lobe without a possible developmental venous anomaly. Apparently, there are number prior CT scans performed at outside institution. Retrieval in comparison to the current study is recommended possible. Follow-up MRI with and without contrast is recommended. CT with contrast is an alternative to MRI if MRI is contraindicated. Findings discussed with DEVAN Casas 09/12/2017 10:55 a.m. with written down and read back verification.
[2017-09-12 11:12] LABS: URINE APPEARANCE SL CLOUDY (CLEAR); URINE COLOR YELLOW (YELLOW)
[2017-09-12 11:16] LABS: ALT/SGPT 38 U/L (7-56); BLOOD UREA NITROGEN 15 mg/dL (7-21); CALCIUM 9.3 mg/dL (8.4-10.5); GFR AFRICAN-AMERICAN > 60; GFR NON-AFRICAN AMERICAN > 60
[2017-09-12 11:20] LABS: URINE RBC NEGATIVE /hpf (0-2); URINE WBC NEGATIVE /hpf (0-6)
--- NOTE | 2017-09-12 14:35 | CARD ---
APPROVED REPORT EKG Measurement Heart [id number] <Conclusion> Normal sinus rhythm Possible Left atrial enlargement Poor R Progressioin V1-V3.
[2017-09-12 17:11] VITALS: BMI 20.1
[2017-09-12] MEDS ORDERED: Pneumococcal 23-Valent Vaccine IM ONE (17:12)
[2017-09-12] MEDS ORDERED: Influenza Vaccine 60 mcg/0.5 mL SYR (4YR UP) IM ONE (17:12)
[2017-09-12] MEDS ORDERED: Labetalol 5 mg/ml Inj 20ML IVP ONE (22:16)
--- NOTE | 2017-09-12 22:47 | CON ---
DATE: 09/12/2017 REASON FOR CONSULTATION: Right upper extremity weakness. HISTORY OF PRESENT ILLNESS: This is a 66-year-old female who presented to the Emergency Room earlier this morning with difficulty ambulating. According to her and her , she tried to get out of bed and developed lower extremity weakness. Previously had right upper extremity weakness last week and undergone an MRI of her brachial plexus as well as cervical spine, but for the first time this morning, had lower extremity weakness. Subsequently she had a CAT scan in the Emergency Room, which was consistent with an infarct. I was consulted for further orthopedic evaluation and treatment. PHYSICAL EXAMINATION: GENERAL: This is a female in no apparent distress. She is awake, alert and oriented x3. NEUROLOGIC: On the right upper extremity, she has 0/5 strength with C6. She also has some decreased soft touch in C6-C7 dermatomes. Left upper extremity is within normal limits. Neurologic examination of bilateral lower extremities again show 5/5 strength in all muscle groups bilaterally with no sensory deficits. Her reflexes are physiologic and symmetric. She has no significant cervical tenderness to palpation along the midline or paraspinal regions. She did have an MRI on 09/06/2017, which was read as normal. She also had an MRI of the cervical spine on the same day, which showed some multilevel spondylitic changes with disc protrusions. She had the CAT scan of her head, which was done today in the Emergency Room, is consistent with a 0.8 x 1.9 x 1 cm hyperdensity in the left frontal vertex, which is suggestive of an intraparenchymal hemorrhage. ASSESSMENT: Right upper extremity weakness. PLAN: At this point, she is scheduled to get an MRI and MRA of the brain for further evaluation of this. I do not feel that this is related to her right shoulder. I feel that this is most likely neurologic and/or vascular in origin. For now, I am going to recommend that we get Occupational Therapy to make her a cock-up wrist splint to prevent any wrist and finger contractures. She understands and agrees with this. We will follow up once the tests are complete. Ted Mccoy MD
--- NOTE | 2017-09-13 04:08 | HP ---
HISTORY OF PRESENT ILLNESS: The patient is a 66-year-old female, who presents to the emergency room complaining of right arm weakness, dizziness, and near syncope. The patient had been suffering with a right shoulder pain over the past several weeks. She was evaluated. She was sent to see an orthopedist Dr. Mccoy who ordered some tests, which were done two or three days ago. However, on the morning of admission, the patient woke up and fell down as her legs were weak and tired, she also complains of feeling if she is about to pass out, therefore was brought to the emergency room, was evaluated and admitted. PAST MEDICAL HISTORY: Positive only for mild hypertension. SOCIAL HISTORY: She is a former smoker. She is . Nonalcoholic drinker. ALLERGIES: SHE HAS NO KNOWN MEDICAL ALLERGIES. MEDICATIONS: Include Bystolic 5 mg once a day. REVIEW OF SYSTEMS: Otherwise unremarkable. PHYSICAL EXAMINATION GENERAL: She is awake, alert, and oriented. VITAL SIGNS: Blood pressure is 166/94, heart rate is 65, and she is afebrile. NECK: Supple with no lymphadenopathy and no goiter. LUNGS: Clear to auscultation and percussion. HEART: Regular. No murmurs are appreciated. ABDOMEN: Soft and nontender. EXTREMITIES: Free of cyanosis, clubbing, or edema; however, the right upper extremity is completely flaccid. LABORATORY DATA: Revealed the white blood cell count to be 10.0, hemoglobin and hematocrit are 21.4 and 62.4 respectively, platelet count is 499. Sodium is 141, potassium 4.6, blood urea nitrogen is 15, creatinine is 0.9. Nonfasting glucose is 89. IMAGING STUDIES: CAT scan of the head revealed intraparenchymal hemorrhage of approximately 1 x 2 cm in the left frontal vertex posteriorly. This is suggestive that this could be a hemorrhagic metastasis or lucency from a vascular bleed. There is also a possible thrombosed vein in the right parietal lobe appearing to drain across the posterior body of the right lateral ventricle into the cisternal cerebral veins. IMPRESSION AND PLAN: The patient is admitted with the possible hemorrhagic stroke. She was evaluated by Dr. Segundo who determined that she was not a neurosurgical candidate. Consultation from Dr. Reynolds was requested. The patient will be followed closely and as soon as possible started on physical therapy, occupational therapy to resume musculature in the right upper extremity. Of note, I discussed the case with Dr. Mccoy, her orthopedist. He will be seeing the patient during the hospital stay. However, CAT scan of the cervical spine which he had ordered showed diffuse osteoarthritis, but nothing to suggest the symptoms that the patient has at present. Also, the CAT scan of the brachial plexus was apparently clean. Jacinto Fu MD
[2017-09-13] MEDS ORDERED: Labetalol 5 mg/ml Inj 20ML IVP STA (05:31)
[2017-09-13 06:05] LABS: BASO # 0.08 K/mm3 (0.0-2.0); BASO % 0.8 % (0.0-3.0); EOS # 0.3 (0.0-0.7); GRAN # 7.14 (1.4-6.5); GRAN % 74.5 % (50.0-68.0); LYMPH # 1.5 (1.2-3.4); LYMPH % 15.7 % (22.0-35.0); MEAN CELL VOLUME 83.1 fl (80.0-105.0); MEAN CORPUSCULAR HEMOGLOBIN 28.6 pg (25.0-35.0); MEAN CORPUSCULAR HGB CONC 34.4 g/dl (31.0-37.0); MEAN PLATELET VOLUME 10.1 fl (7.0-11.0); MONO # 0.6 (0.1-0.6); RBC 7.32 10^6/uL (3.5-6.1); RED CELL DISTRIBUTION WIDTH 20.3 % (11.5-14.5); WHITE BLOOD COUNT 9.6 10^3/ul (4.5-11.0)
[2017-09-13 06:27] LABS: HEMOGLOBIN 20.9 g/dL (12.0-16.0)
[2017-09-13 06:32] VITALS: RESP 20; TEMP 98.1; O2SAT 99
--- NOTE | 2017-09-13 06:40 | CP.PCM.PN ---
Subjective - Date & Time of Evaluation Date of Evaluation: 09/13/17 Time of Evaluation: 06:39 - Subjective Subjective: DRAFT: Elevated blood pressure. Little headache. Objective - Vital Signs/Intake and Output Vital Signs (last 24 hours): Temp Pulse Resp BP Pulse Ox 98.1 F 75 20 160/109 H 99 09/13/17 06:00 09/13/17 06:00 09/13/17 06:00 09/13/17 06:00 09/13/17 06:00 Intake and Output: 09/12/17 09/13/17 18:59 06:59 Intake Total 120 Output Total 100 Balance 20 - Medications Medications: Current Medications Amlodipine Besylate (Norvasc) 5 mg PO DAILY [facility] Metoprolol Tartrate (Lopressor) 25 mg PO BID [facility] Last Admin: 09/12/17 21:39 Dose: 25 mg - Labs Labs: 09/13/17 05:30 PT 12.5 SECONDS (9.4-12.5) 09/12/17 09:52 INR 1.09 (0.93-1.08) H 09/12/17 09:52 APTT 41.2 Seconds (25.1-36.5) H 09/12/17 09:52
[2017-09-13] MEDS ORDERED: Labetalol 5 mg/ml Inj 20ML IVP ONE (07:06)
[2017-09-13] MEDS ORDERED: Magnesium Sulfate 2 GM in Sodium Chloride 0.9% 100 ML IVPB ONE (07:18)
[2017-09-13] MEDS ORDERED: Valproate 500 MG in Sodium Chloride 0.9% 100 ML IVPB ONE (07:19)
[2017-09-13 07:52] LABS: ALB/GLOB RATIO 1.3 (1.1-1.8); ALBUMIN 3.8 g/dL (3.0-4.8); ALT/SGPT 44 U/L (7-56); AST/SGOT 35 U/L (14-36); BLOOD UREA NITROGEN 16 mg/dL (7-21); CALCIUM 9.4 mg/dL (8.4-10.5); GFR AFRICAN-AMERICAN > 60; GFR NON-AFRICAN AMERICAN > 60; HDL CHOLESTEROL 44 mg/dL (29-60)
[2017-09-13 08:03] LABS: LDL CHOLESTEROL 105 mg/dL (0-129)
--- NOTE | 2017-09-13 08:59 | CON ---
ADDENDUM DATE: 09/12/2017 NEUROLOGIC: In the right upper extremity, she has C5, C6, C7, C8 and T1, essentially has a flaccid right upper extremity. Left upper extremity exam is intact. This is new from her previous exam last week where she showed some C6 weakness, but had active and was able to actively flex the elbow as well as make a fist. Ted Mccoy MD
--- NOTE | 2017-09-13 10:27 | CP.PCM.PN ---
Subjective - Date & Time of Evaluation Date of Evaluation: 09/13/17 Time of Evaluation: 10:26 - Subjective Subjective: awaiting MRI Will review study when done and comment on management Objective - Vital Signs/Intake and Output Vital Signs (last 24 hours): Temp Pulse Resp BP Pulse Ox 98.1 F 72 20 168/102 H 99 09/13/17 06:00 09/13/17 07:09 09/13/17 06:00 09/13/17 07:09 09/13/17 06:00 Intake and Output: 09/13/17 09/13/17 06:59 18:59 Intake Total 120 Output Total 100 Balance 20 - Medications Medications: Current Medications Amlodipine Besylate (Norvasc) 5 mg PO DAILY [facility] Atorvastatin Calcium (Lipitor) 20 mg PO DIN [facility] Hydralazine HCl (Apresoline) 10 mg PO QID PRN PRN Reason: for sbp>170 Lisinopril (Zestril) 20 mg PO DAILY [facility] Metoprolol Tartrate (Lopressor) 25 mg PO BID [facility] Last Admin: 09/12/17 21:39 Dose: 25 mg - Labs Labs: 09/13/17 05:30 09/13/17 07:30 PT 12.5 SECONDS (9.4-12.5) 09/12/17 09:52 INR 1.09 (0.93-1.08) H 09/12/17 09:52 APTT 41.2 Seconds (25.1-36.5) H 09/12/17 09:52
[2017-09-13 10:29] VITALS: BP 158/96; PULSE 85
--- NOTE | 2017-09-13 14:32 | CON ---
DATE: 09/13/2017 NEUROLOGY CONSULTATION CHIEF COMPLAINT: Right-sided weakness. HISTORY OF PRESENT ILLNESS: This is a 66-year-old woman with history of hypertension, former smoker, who has been having few days of right arm weakness and lightheadedness and came to the hospital for further evaluation. She had a CAT scan of the head, which apparently showed a small intraparenchymal hemorrhage at the posterior left frontal lobe near the vertex 1.9 cm in greatest dimension with local edema, but no significant mass effect, with a possibility of some underlying mass lesion though cannot be definite, therefore, MRI of the brain is pending. Neurosurgery has evaluated the patient and is waiting for further imaging. Case discussed with the son and the family members at bedside. She has right-sided weakness, which is a result of the left posterior frontal lobe intraparenchymal hemorrhage. Her blood pressure was high overnight and she was given one dose of labetalol. Now blood pressure is stabilized at 158/96 and I will slowly work to get it between 130s to 140s. Her hemoglobin is 20.9 with hematocrit of 60.8. PAST MEDICAL HISTORY: Mild hypertension. SOCIAL HISTORY: Former smoker. No illicit drug use, smoking, or EtOH abuse. ALLERGIES: NO KNOWN DRUG ALLERGIES. MEDICATIONS: At home is Bystolic 5 mg once a day. REVIEW OF SYSTEMS: A 14-point review of systems was negative except as per HPI. PHYSICAL EXAMINATION: GENERAL: The patient is lying in bed in no acute distress. VITAL SIGNS: Temperature is afebrile, pulse rate of 84, blood pressure of 158/96, and respiratory rate of 18. HEENT: Head is atraumatic and normocephalic. PERRLA. Extraocular muscles are intact. NECK: Supple. No JVD. No adenopathy noted. LUNGS: Clear to auscultation. No adventitious sounds. HEART: S1 and S2, normal rate and rhythm. No murmurs, rubs or gallops. ABDOMEN: Soft, nontender, and nondistended. Bowel sounds are present. EXTREMITIES: No clubbing. No cyanosis. Peripheral pulses are 2+ felt bilaterally. NEUROLOGIC: The patient is alert and oriented to person, place, month, and year. Speech is slightly dysarthric. No aphasia noted. Cranial nerves II through XII are intact. There is some mild right nasolabial fold flattening. Motor exam: Right upper extremity 1/5. Right lower extremity is 4+/5. Right toe is up-going and left toe is downgoing. Left side motion is intact. Sensory exam: Light touch, pinprick, proprioception, and vibration intact. DTRs are 2+ throughout. Coordination of [id number] intact on the left, difficult in the right due to right-sided weakness. Gait is deferred for now. LABORATORY DATA: Sodium is 140, potassium is 4, chloride of 108, carbon dioxide 22, BUN of 16, creatinine 0.9, and random glucose of 93. A1c is 5.4. LDL is 105 and total cholesterol is 178. ASSESSMENT: This is a 66-year-old woman with history of hypertension, who presented with few days of right-sided weakness mostly right upper extremity and near syncope, found to have intraparenchymal hemorrhage measuring 1.9 cm in greatest dimension in the posterior left frontal lobe, with some hypodensity in the venous sinus that is not clearly identified, therefore, MRI of the brain will be beneficial. At this time, her right-sided weakness is most likely secondary to the left posterior frontal lobe hemorrhage. Neurosurgery has evaluated the patient, waiting for imaging. RECOMMENDATIONS: At this time, recommend; 1. Small intraparenchymal is likely secondary to hypertensive urgency. At this time, recommend keep systolic blood pressure between 130 to 140 mmHg and diastolic 70 to 80. 2. Avoid antiplatelet for now and no antibiotics for at least three weeks from the onset of bleed. 3. MRI of the brain and MRA of the head to assess for any further structural abnormalities of the brain causing symptoms. 4. PT, OT, and speech therapy assessment. 5. Continue current present medical management. Thank you for this consult. Montana Reynolds MD
--- NOTE | 2017-09-13 15:44 | CP.PCM.CON ---
History of Present Illness - History of Present Illness History of Present Illness: Mrs. Del Real is a 66-year-old woman with a past medical history of polycythemia vera, who presented with headache, right sided weakness, and a CT of the head showed a left high frontal lobe hemorrhage with surrounding vasogenic edema, possibly consistent with a cerebral venous sinus thrombosis. The patient's family was adamant about transferring the patient to [facility] for higher level care. I assisted and attempted to facilitate the transfer by speaking the the accepting physician, Dr. Hernandez. Review of Systems - Review of Systems All systems: reviewed and no additional remarkable complaints except Past Patient History - Infectious Disease Hx of Infectious Diseases: None - Past Social History Smoking Status: Former Smoker - CARDIAC Hx Cardiac Disorders: Yes Hx Hypertension: Yes - PULMONARY Hx Asthma: No - NEUROLOGICAL Hx Neurological Disorder: Yes (roshni numbness x 3 wks) Other/Comment: rle pins and needles/weakness x 2 days - HEENT Hx HEENT Problems: Yes (sinusitis, seasonal allergies) - ENDOCRINE/METABOLIC Hx Endocrine Disorders: No - HEMATOLOGICAL/ONCOLOGICAL Hx Metastesis: No - INTEGUMENTARY Hx Cellulitis: No - MUSCULOSKELETAL/RHEUMATOLOGICAL Hx Falls: Yes (fell today) Hx Spinal Stenosis: No Other/Comment: no rom right arm, flaccid x3 wks, r leg weakness x 2 days, has been seeing dr patel for possible pinched nerve r arm - GASTROINTESTINAL Hx Liver Failure: No - GENITOURINARY/GYNECOLOGICAL Hx Hematuria: Yes (pyleonephritis) - PSYCHIATRIC Hx Substance Use: No - SURGICAL HISTORY Hx Surgeries: No - ANESTHESIA Hx Anesthesia: No Meds Allergies/Adverse Reactions: Allergies Allergy/AdvReac Type Severity Reaction Status Date / Time No Known Allergies Allergy Verified 09/12/17 09:22 - Medications Medications: Current Medications Amlodipine Besylate (Norvasc) 5 mg PO DAILY [facility] Last Admin: 09/13/17 10:23 Dose: 5 mg Atorvastatin Calcium (Lipitor) 20 mg PO DIN [facility] Hydralazine HCl (Apresoline) 10 mg PO QID PRN PRN Reason: for sbp>170 Hydroxyurea (Hydrea) 1,000 mg PO BID [facility] Lisinopril (Zestril) 20 mg PO DAILY [facility] Last Admin: 09/13/17 10:23 Dose: 20 mg Metoprolol Tartrate (Lopressor) 25 mg PO BID [facility] Last Admin: 09/13/17 10:24 Dose: 25 mg Physical Exam - Constitutional Appears: Non-toxic, Confused - Head Exam Head Exam: ATRAUMATIC, NORMAL INSPECTION, NORMOCEPHALIC - Eye Exam Eye Exam: EOMI, Normal appearance, PERRL - ENT Exam ENT Exam: Mucous Membranes Moist, Normal Exam - Respiratory Exam Respiratory Exam: Clear to Auscultation Bilateral, NORMAL BREATHING PATTERN - Cardiovascular Exam Cardiovascular Exam: REGULAR RHYTHM, +S1, +S2 - GI/Abdominal Exam GI & Abdominal Exam: Normal Bowel Sounds, Soft. absent: Tenderness - Rectal Exam Rectal Exam: Deferred - Extremities Exam Extremities exam: Positive for: normal inspection - Back Exam Back exam: NORMAL INSPECTION - Neurological Exam Neurological exam: CN II-XII Intact Additional comments: NIHSS = 10 - Expanded Neurological Exam Expanded Patient oriented to: person, place, time Speech: Expressive Aphasia Cranial nerves: EOM's Intact: Normal, Facial Palsey w/Forehead Movement: Abnormal Right, Facial Sensation: Abnormal Right Ataxia: No Cerebellar Function: Finger to Nose: Abnormal Right, Heel to Acevedo: Abnormal Right Upper motor neuron: Babinski Sign: Abnormal Right, Sensory Extinction: Abnormal Right Sensory exam: Lower Extremity Light Touch: Abnormal Right, Lower Extremity Pin Prick: Abnormal Right, Upper Extremity Light Touch: Abnormal Right, Upper Extremity Pin Prick: Abnormal Right Neuro motor strength exam: Left Upper Extremity: 4, Right Upper Extremity: 0, Left Lower Extremity: 4, Right Lower Extremity: 3 DTR: Bicep Left: 2+, Bicep Right: 3+, Patellar Left: 2+, Patellar Right: 3+ - Psychiatric Exam Psychiatric exam: Normal Affect, Normal Mood Results - Vital Signs Recent Vital Signs: Last Vital Signs Temp 98.1 F 09/13/17 06:00 Pulse 85 09/13/17 10:24 Resp 20 09/13/17 06:00 BP 158/96 H 09/13/17 10:24 Pulse Ox 99 09/13/17 06:00 - Labs Result Diagrams: 09/13/17 05:30 09/13/17 07:30 Labs: Laboratory Results - last 24 hr 09/13/17 09/13/17 09/13/17 05:30 05:30 07:30 WBC 9.6 RBC 7.32 H Hgb 20.9 H* Hct 60.8 H* MCV 83.1 MCH 28.6 MCHC 34.4 RDW 20.3 H Plt Count 484 H MPV 10.1 Gran % 74.5 H Lymph % (Auto) 15.7 L [place] % (Auto) 6.0 Eos % (Auto) 3.0 Baso % (Auto) 0.8 Gran # 7.14 H Lymph # 1.5 [place] # 0.6 Eos # 0.3 Baso # 0.08 Sodium 140 Potassium 4.0 Chloride 108 H Carbon Dioxide 22 Anion Gap 14 BUN 16 Creatinine 0.9 Est GFR ( Amer) > 60 Est GFR (Non-Af Amer) > 60 Random Glucose 93 Hemoglobin A1c 5.4 Calcium 9.4 Total Bilirubin 1.1 AST 35 ALT 44 Alkaline Phosphatase 83 Total Protein 6.7 Albumin 3.8 Globulin 3.0 Albumin/Globulin Ratio 1.3 Triglycerides 96 Cholesterol 178 LDL Cholesterol Direct 105 HDL Cholesterol 44 Assessment & Plan (1) Hemorrhagic stroke Assessment and Plan: Could be due to a primary hemorrhage, or may be due to an ischemic stroke with secondary hemorrhagic conversion. Another possibility in this case is a cerebral vein thrombus. I recommend a CTA/CTV to determine if the patient should be started on heparin. In the meantime, start IVF with NS at 100 mL/hr. The patient is scheduled to be transferred to [facility]. Status: Acute (2) Polycythemia Status: Acute
--- NOTE | 2017-09-13 18:26 | CARD ---
APPROVED REPORT EXAM: Two-dimensional and M-mode echocardiogram with Doppler and color Doppler. INDICATION CVA/TIA 2D DIMENSIONS Left Atrium (2D)3.3 (1.6-4.0cm)IVSd1.0 (0.7-1.1cm) LVDd4.3 (3.9-5.9cm)PWd1.0 (0.7-1.1cm) LVDs2.6 (2.5-4.0cm)FS (%) 40.0 % LVEF (%)70.9 (>50%) M-Mode DIMENSIONS Aortic Root2.20 (2.2-3.7cm)Aortic Cusp Exc.1.60 (1.5-2.0cm) Aortic Valve AoV Peak Tahgvawp112.0cm/Ivett Peak GR.8mmHg Mitral Valve MV E Ohlqwxje45.5cm/sMV A Ukyuhodk68.7cm/sE/A ratio1.1 TDI E/Lateral E'0.0E/Medial E'0.0 Tricuspid Valve TR Peak [id number]/sRAP [id number] Peak Gr.26mmHg [id number] LEFT VENTRICLE The left ventricle is normal size. There is normal left ventricular wall thickness. The left ventricular function is normal.Ef-65-70% There is normal LV segmental wall motion. The left ventricular diastolic function is normal. No left ventricle thrombus noted on this study. There is no ventricular septal defect visualized. There is no left ventricular aneurysm. There is no mass noted in the left ventricle. RIGHT VENTRICLE The right ventricle is normal size. There is normal right ventricular wall thickness. The right ventricular systolic function is normal. ATRIA The left atrium size is normal. The right atrium size is normal. The interatrial septum is intact with no evidence for an atrial septal defect. AORTIC VALVE The aortic valve is thickened but opens well. There is trace aortic regurgitation. There is no aortic valvular stenosis. There is no aortic valvular vegetation. MITRAL VALVE The mitral valve is thickened but opens well. Mitral regurgitation is mild to moderate. There is no mitral valve stenosis. There is no evidence of mitral valve prolapse. TRICUSPID VALVE The tricuspid valve leaflets are thickened , but open well. There is mild to moderate tricuspid regurgitation.RVSP-36 mmof hg There is no tricuspid valve stenosis. There is no tricuspid valve prolapse or vegetation. PULMONIC VALVE The pulmonary valve is normal in structure. There is trace pulmonic valvular regurgitation. There is no pulmonic valvular stenosis. GREAT VESSELS The aortic root is normal in size. The ascending aorta is normal in size. The pulmonary artery is normal. The IVC is normal in size and collapses >50% with inspiration. PERICARDIAL EFFUSION There is no pleural effusion. There is no pericardial effusion. <Conclusion> Normal Chamber Size. EF65-70%. There is trace aortic regurgitation. Mitral regurgitation is mild to moderate. There is mild to moderate tricuspid regurgitation.RVSP-36 mmof hg The IVC is normal in size and collapses >50% with inspiration. There is no pericardial effusion. no thrombus or vegetation noted.
--- NOTE | 2017-09-13 21:42 | CON ---
DATE: 09/13/2017 CONSULT SERVICE: Cardiology. REASON FOR CONSULTATION: CVA, right-sided weakness, intracerebral bleed, uncontrolled hypertension, cardiac evaluation. BRIEF CLINICAL HISTORY: A 66-year-old female with past medical history significant for hypertension recently diagnosed, admitted with right-sided weakness and right shoulder pain. Denies any chest pain, shortness of breath or any palpitation. PAST MEDICAL HISTORY: Hypertension recently diagnosed, started on Bystolic. REVIEW OF SYSTEMS: As per HPI. SOCIAL HISTORY: Denies any history of alcohol abuse. ALLERGIES: NO KNOWN DRUG ALLERGY. PHYSICAL EXAMINATION: VITAL SIGNS: Temperature afebrile, heart rate 65, blood pressure 160/109. HEENT: PERRLA, intact. NECK: Supple. No carotid bruit or thyromegaly. CHEST: Clear to auscultation. HEART: S1 and S2 regular. ABDOMEN: Soft. EXTREMITIES: Clubbing and cyanosis negative. LABORATORY DATA: Blood workup; WBC 9.6, hemoglobin 20.9, hematocrit 60.8, and platelet count 484. Sodium 140, potassium 4, chloride 108, carbon dioxide 20, anion gap of 14, BUN 16, and creatinine 0.9. EKG showed normal sinus, possible left atrial enlargement, poor RR progression. The patient had CAT scan on admission on 09/12/2017, intraparenchymal hemorrhage, ICB, intracerebral bleed. IMPRESSION: A 66-year-old female with past medical history of hypertension, admitted with intracerebral bleed, right-sided weakness and uncontrolled hypertension. RECOMMENDATIONS: We will get lipid profile, TSH, and hemoglobin A1c. Aggressive control of her blood pressure. Also this patient has Hematology/Oncology evaluation for polycythemia. We will follow with you. Thank you for providing me the opportunity in taking care of the patient, Lamar Del Real. Lynda Nichols MD
--- NOTE | 2017-09-14 03:54 | CON ---
DATE: 09/13/2017 This is [facility] consult on the Telemetry floor. For Dr. Bro: CHIEF COMPLAINT: Right sided weakness. HISTORY OF PRESENT ILLNESS: The patient is a 66-year-old female who is seen on the telemetry floor with the family at the bedside with the patient is reporting she had decrease strength, weakness to the right upper extremity for at least three weeks' time, for which she sought out treatment with Dr. Mccoy, Orthopedic Surgeon. The patient was then having fall after arising from bed with her legs are feeling weak, the patient was then brought to the Emergency Room for evaluation and treatment. ALLERGIES: NO KNOWN ALLERGIES. MEDICATIONS: The patient's medicines included Bystolic 5 mg once a day, recently started she reports. PAST MEDICAL HISTORY: Significant for mild hypertension with treatment for renal colic in December of this year, otherwise denied. The patient also had a consult in December with Dr. Suarj Norris who had seen the patient then for urosepsis with elevated white count, red count and platelet count. At that time, it was believed to be reactive secondary to infection with JAK2 mutation. The BCR-ABL mutation done with recommendation to follow up as an outpatient then. At that time, the patient did have a CT scan of her abdomen and pelvis on 12/31/2016, it was read as left-sided hydronephrosis with perinephric stranding, some dense material across left ureter probably represents acute blood probably obstructing an underlying stone, with her spleen and liver unremarkable then. FAMILY HISTORY AND SOCIAL HISTORY: The patient was a former smoker. No illicit drug use and no EtOH use. REVIEW OF SYSTEMS: A 12-point review of systems was done, which was negative to questioning except for items mentioned in the history of present illness. OBJECTIVE/PHYSICAL EXAMINATION: VITAL SIGNS: Temperature of 98.1, pulse of 72, respirations of 20, blood pressure of 168/102, and pulse oximetry of 99%. HEENT: She appears sluggish in her responses with possible mild facial asymmetry, weakness on the right side to grin and showing teeth and frown. NECK: Supple. HEART: Regular rate. LUNGS: Clear. ABDOMEN: Soft and nontender. EXTREMITIES: Flaccidity, no strength to electrical laboratory technician to the right side, left side within normal range with decreased strength on the right side of upper extremity. SKIN: Warm, dry and clear. NEUROLOGIC: Awake and oriented, however with questionable aphasic responses. LABORATORY DATA: On admission 09/12/2017, white blood cell count of 10.0, hemoglobin of 21.4, and hematocrit of 62.4 with a platelet count of 499,000 with the repeat in the same range today 09/13/2017. Her blood tests from 12/31/2016, showed a hemoglobin that day of 19.5 with a hematocrit of 57.1, and platelet count of 751,000. However the next day's labs showed a white blood cell count of 10.8, hemoglobin of 16.7, hematocrit of 48.8, and platelet count of 502,000. Her INR was 1.09 yesterday. Her chemistry panel from yesterday was within normal range with an LDH of 774. Urinalysis showed trace of protein yesterday. She also had testing done on 01/01/2017 for a JAK2 mutation which was significant for positive findings. BCR-ABL testing was negative. DIAGNOSTIC DATA: The patient did have a CT scan of her head done yesterday, it was read as small intraparenchymal hemorrhage was seen in the posterior left frontal lobe near the vertex 1.9 cm greatest dimension with local edema with no significant mass effect appreciated. Separate areas of edema are appreciated in the left occipital knight and white matter suspicious for an acute or subacute infarction, venous sinus thrombosis, there is possible unusual array, findings locally hemorrhagic metastasis is possibility. Apparently, the patient did not experience trauma, but only dizziness on presentation, although she does have a history of right upper extremity weakness for several weeks, hypertensive within the venous sinus not clearly identified in the left cerebral hemisphere in particular, but may be present. An AD draining vein the right parietal lobe without a possible developmental venous anomaly. Apparently, there are number of prior CT scan performed outside institution retrievable in comparison is recommended. Follow up MRI with contrast is recommended. The patient had echocardiogram done, it was not read yet. She had an EKG done yesterday, it was read as normal sinus rhythm, possible left atrial enlargement and poor R-wave progression. IMAGING DATA: She had a chest x-ray done yesterday, it was read as no active disease. ASSESSMENT: The assessment for this patient is that of hemorrhagic stroke, possibly secondary to ischemic stroke with hemorrhagic conversion versus cerebral vein thrombosis with right upper extremity flaccidity and aphasia. 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 PLAN: For this patient after conversation with Dr. Bro and Dr. Wiggins, she is to continue the present medical regimen. We will give Hydrea 1 gram p.o. b.i.d. as per 500 mL phlebotomy to be done with consideration for low dose aspirin which will be considered after MRI and MRAs are done to rule out AV malformation versus mass, as there is a history of clot in the venous system as described above. We will also recommend to continue present medical recommendations. We will ask for a repeat of BCR-ABL testing, JAK2 mutation testing along with flow cytometric analysis with hypertension medications to be continued. We will off her Zofran for her nausea, with liver and spleen scan to be done when possible. There is also consideration that the patient to be transferred to [facility], with a transfer to be arranged as possible. We will monitor clinically and with labs. Prognosis for this patient guarded. This is a complex patient, but a comprehensive medically necessary and appropriate visit was carried out. An excess of 1 hour time [id number] with the patient and family with recommendations discussed with the family members and the patient. Shawn Long MD
--- NOTE | 2017-09-14 05:27 | CON ---
DATE: 09/13/2017 ADDENDUM LOCATION: The patient is in room 275, bed 1. CONSULTATION SERVICE: Hematology/Oncology. REASON FOR CONSULTATION: Coagulopathy in the background of this patient has new onset of right-sided weakness, intracerebral bleed, uncontrolled hypertension, possibility of cerebral sinus thrombosis as well. This is an addendum to the dictation of Dr. Long who dictated earlier today. I reviewed the prior admission history of this patient in 12/2016 and current admissions and looked at her lab values over the last several tests that were available to the hospital computer and it appears that the patient's hemoglobin and hematocrit are elevated, current hemoglobin is 20.9 and hematocrit of 60.8, platelet count of 484,000. In the past, the platelet count has been high at 600,000. Workup in 12/2016 was requested for BCR-ABL and JAK2 mutational studies. JAK2 was positive, raising the strong possibility of dealing with myeloproliferative disorder such as polycythemia vera accounting for the elevated hemoglobin and hematocrit. If this is the case, the patient would benefit from monitor phlebotomy to bring the hematocrit down to at least less than 50, ideally bring it down to 45. In the meantime, we also reiterated the issue whether the patient needs to be placed on short-term IV heparin or at the least aspirin after discussions with the neurologist and the neurosurgeon as well. Because of these concerns, another opinion with Dr. Sree Wiggins, who is also a vascular neurologist, was requested and his opinion was after discussing with the family, they wanted to have the patient transferred to [facility] to the neurosurgical unit where the patient could be monitored much more intensively. I had the opportunity to speak to Dr. Claudia Hernandez, I gave him all the details and faxed him all the reports, all findings from these last few visits on the hospital computer to be sent to [facility], so they have all these information. I requested also after talking to him to get again local oncologist/fitness technician to see the patient and our recommendation at this present time would be to do a phlebotomy, either antiplatelet agent therapy or cautious heparinization maybe in order given the fact the patient also has hemorrhage. In addition to that, we strongly recommend also incorporating therapy with hydroxyurea 1 gm b.i.d. to bring the counts down even further over the next 72 hours. The patient may need an MRI and MRA of the brain as well, which could be done at the receiving hospital at [facility]. I have explained all these findings and my discussions with Dr. Hernandez to Dr. Jacinto Fu, the primary doctor as well. I am available for any other questions if family or the receiving hospital may have, I had given Dr. Hernandez my cell number as well. Time spent in coordinating all these fax and putting everything together more than 90 minutes. Jacqui Bro MD
== END 2017-09-13 17:38 | disposition short-term general hospital (02) | DRG 64 ==
LOC: ED 09:19 → ERH 11:42 → 2RSO 20:48
PROVIDERS: ADMIT Internal Medicine; ATTEND Internal Medicine
DX: I61.1 Nontraumatic intracerebral hemorrhage in hemisphere, cortical (principal); G93.6 Cerebral edema; G81.01 Flaccid hemiplegia affecting right dominant side; R47.01 Aphasia; I10 Essential (primary) hypertension; D45 Polycythemia vera; R29.710 NIHSS score 10; M47.892 Other spondylosis, cervical region; Z87.891 Personal history of nicotine dependence